=== PATIENT | female | born 1960 | race Caucasian/White ===

== ENCOUNTER 2023-02-23 17:46 | Inpatient (IN) | payer OTHER ==
[~2023-02-23] VITALS: Ht 157.5 cm; Wt 130.4 kg
[~2023-02-23 17:46] MED LIST: ALBU3IS INH; ALBU90OI INH; ASPI325 PO; ATOR80 PO; AZIT250 PO; Acetaminophen650 M1 PO; BUSP5 PO; Bactrim Ds Tab1 EACH PO; CEPH500 PO; CHOL10002 PO; CLIN300 PO; CLOP75 PO; COLE625 PO; Cleocin HCl150 MG PO; DOCU100 PO; DULO30 PO; DULO60 PO; FLUC150A PO; GABA300 PO; GABA600 PO; HYDCHL25 PO; HYDMETSO RIGHTEYE; INSR10I SC; INSULANPEN SC; LEVEMIR FL100 UNIT/1 SC; LEVO750 PO; LISI5 PO; METF500 PO; METO25 PO; MONT10T PO; NAPR500 PO; NYATA15 GM TOP; NYST100P TOP; Novolog Fl100 UNIT/1 SC; Nystatin15 GM TOP; OMEG1CAP30 PO; OMEPRAZOLE MAGN20 MG PO; OXCA300 PO; OXYACE5T PO; PIRO20 PO; PRED10 PO; SERT100 PO; STIOLTO RESPIMAT4 GM INH; TRAM50 PO; Xanax1 MG PO; ZOLP5 PO
[2023-02-23 17:59] LABS: Base Excess Venous 3.5 mmol/L; Bicarbonate Venous 25.1 mmol/L (24.0-30.0); PCO2 Venous 66.4 mmHg (38-42); pH Blood Venous 7.27 (7.34-7.37)
[2023-02-23 18:02] LABS: BASOPHILS ABSOLUTE AUTO 0.05 K/mm3 (0.00-0.23); BASOPHILS PERCENT AUTO 1 % (0-2); EOSINOPHILS ABSOLUTE AUTO 0.11 K/mm3 (0.00-0.68); EOSINOPHILS PERCENT AUTO 1 % (0-6); Hematocrit 44.9 % (33.0-51.0); Hemoglobin 13.7 g/dL (11.5-16.0); IMMATURE GRAN ABSOLUTE AUTO 0.07 K/mm3 (0.00-0.10); IMMATURE GRAN PERCENT AUTO 1 % (0-1); LYMPHOCYTES ABSOLUTE AUTO 1.35 K/mm3 (0.84-5.20); LYMPHOCYTES PERCENT AUTO 17 % (21-46); MONOCYTES ABSOLUTE AUTO 0.74 K/mm3 (0.16-1.47); MONOCYTES PERCENT AUTO 9 % (4-13); Mean Corpuscular HGB 30.4 pg (26.0-34.0); Mean Corpuscular HGB Conc 30.5 g/dL (31.5-36.5); Mean Corpuscular Volume 100 fL (80-100); Mean Platelet Volume 10.8 fL (9.1-12.4); NEUTROPHILS ABSOLUTE AUTO 5.79 K/mm3 (1.96-9.15); NEUTROPHILS PERCENT AUTO 71 % (41-73); Platelet Count 149 K/mm3 (150-400); RDW Coefficient Variation 14.2 % (11.7-14.2); RDW Standard Deviation 51.8 fL (35.1-46.3); White Blood Cell Count 8.11 K/mm3 (4.00-11.30)
[2023-02-23 18:25] LABS: Albumin, Blood 3.5 g/dL (3.4-5.0); Albumin/Globulin Ratio 0.7 (0.8-1.8); Bilirubin, Total 0.6 mg/dL (0.1-1.0); Bun/Creatinine Ratio 34.3 (12.0-20.0); Calcium, Blood 9.1 mg/dL (8.5-10.1); Creatinine, Blood 1.05 mg/dL (0.40-1.00); Globulin, Blood 4.8 g/dL (2.2-4.0); Potassium, Blood 4.8 mmol/L (3.5-5.5); Total Protein, Blood 8.3 g/dL (6.4-8.2)
[2023-02-23 19:22] LABS: Influenza A, PCR NEGATIVE (NEGATIVE); Influenza B, PCR NEGATIVE (NEGATIVE); Resp Syncytial Virus, PCR NEGATIVE (NEGATIVE); SARS-Cov-2 (COVID-19) PCR, MMC NEGATIVE (NEGATIVE)
[2023-02-23 21:54] VITALS: BP 140/67
--- NOTE | 2023-02-23 23:00 | NUR ---
ARRIVAL TO PCU NOTE RECEIVED REPORT FROM DISTILLATION OPERATOR BRIANA LÓPEZ ~2134, PT SHORTLY ARRIVED TO PCU 4. PT TRANSFERRED FROM ER [facility] TO PCU BED VIA SLIDE SHEET. CARDIAC, TELE REPORTED PT IS IN SR 80-90'S. PT DENIES ANY CP OR PRESSURE WITH SBP RANGING 130-140'S. RESPIRATORY, ARRIVED MAINTAINING SPO2 88-92% ON 7L VIA HFNC WITH RR RANGING 24-26. INCREASED WORK OF BREATHING NOTED WITH MINIMAL EXERTION. LS VERY COARSE AND TIGHT T/O. BiPAP SET UP IN THE ROOM WITH 12-6 W/60% FiO2. GI/, REPORTS INTERMITTNET INCONTINENCE WITH ATTENDS USE AT HOME PER PT. ATTENDS SOAKED WITH YELLOW URINE UPON ARRIVAL FROM ER. ABD DISTENDED, BUT DENIES N/V/D OR TENDERNESS AT THIS TIME. PURWICK IN PLACE DRAINING YELLOW URINE TO SUCTION. M/S, PT HAS NOTED TO HAVE RIGHT BKA AND USES SLIDE BOARD TO TRANSFER AT HOME PER THE PT'S DAUGHTER. SEVERAL RASHES NOTED T/O ABD/SEEMA FOLDS WITH DISCOLORATION NOTED AROUND BUTTOCKS. SEE PIC'S IN CHART. LEFT AC IV INFUSING LEVAQUIN PER EMAR. DENIES PAIN AT THIS TIME. PT IS POOR HISTORIAN AND DAUGHTER (PRIMARY CAREGIVER) IS ALSO A POOR HISTORIAN. WILL CONTINUE TO PROCESS MD ORDERS. REBECCA BRAVO UPON ARRIVAL TO PCU
[2023-02-24] MEDS ORDERED: LOSA25 PO (00:16)
[2023-02-24] MEDS ORDERED: ROSU10TA PO (00:17)
[2023-02-24] MEDS ORDERED: Prozac40 MG PO (00:17)
[2023-02-24] MEDS ORDERED: SIME80CH PO (00:17)
[2023-02-24] MEDS ORDERED: Clobetasol Prop50 ML TOP (00:19)
[2023-02-24] MEDS ORDERED: PIOG15 PO (00:19)
[2023-02-24] MEDS ORDERED: TRAZ100 PO (00:19)
[2023-02-24] MEDS ORDERED: ABILIFY MYCITE10 M2 PO (00:19)
[2023-02-24] MEDS ORDERED: ALLERCLEAR10 MG PO (00:20)
[2023-02-24] MEDS ORDERED: INSULANPEN SC (00:22)
[2023-02-24 02:47] VITALS: BP 131/70
[2023-02-24 04:07] LABS: BASOPHILS ABSOLUTE AUTO 0.02 K/mm3 (0.00-0.23); BASOPHILS PERCENT AUTO 0 % (0-2); EOSINOPHILS PERCENT AUTO 0 % (0-6); Hematocrit 41.1 % (33.0-51.0); Hemoglobin 12.8 g/dL (11.5-16.0); IMMATURE GRAN ABSOLUTE AUTO 0.09 K/mm3 (0.00-0.10); IMMATURE GRAN PERCENT AUTO 1 % (0-1); LYMPHOCYTES ABSOLUTE AUTO 0.51 K/mm3 (0.84-5.20); LYMPHOCYTES PERCENT AUTO 6 % (21-46); MONOCYTES ABSOLUTE AUTO 0.12 K/mm3 (0.16-1.47); MONOCYTES PERCENT AUTO 1 % (4-13); Mean Corpuscular HGB Conc 31.1 g/dL (31.5-36.5); Mean Corpuscular Volume 100 fL (80-100); Mean Platelet Volume 11.5 fL (9.1-12.4); NEUTROPHILS ABSOLUTE AUTO 8.17 K/mm3 (1.96-9.15); NEUTROPHILS PERCENT AUTO 92 % (41-73); NRBC ABSOLUTE 0.02 K/mm3 (0.00-0.02); NRBC Auto 0.2 /100 WBC (0.0-0.2); Platelet Count 131 K/mm3 (150-400); RDW Coefficient Variation 13.9 % (11.7-14.2); RDW Standard Deviation 50.9 fL (35.1-46.3); Red Blood Cell Count 4.13 M/mm3 (3.80-5.20); White Blood Cell Count 8.91 K/mm3 (4.00-11.30)
[2023-02-24 04:23] LABS: Bun/Creatinine Ratio 37.3 (12.0-20.0); Creatinine, Blood 0.96 mg/dL (0.40-1.00); Potassium, Blood 5.4 mmol/L (3.5-5.5)
--- NOTE | 2023-02-24 06:22 | NUR ---
SHIFT SUMMARY NO ACUTE CHANGES FROM ARRIVAL TO PCU NOTE. SEE NOTE FOR MORE DETAILS. CONTINUES BE IN SR 80-90 S WITH NO REPORTS OF CP OR PRESSURE. CT/PE STUDY PERFORMED LAST NIGHT. TOLERATED BiPAP THROUGHOUT MOST OF THE NIGHT WITH 12/6 W/60% FiO2. CONTINUES TO BE INCONTINENT OF URINE. ATTENDS WITH PUREWICK IN PLACE AND CHANGED PRN TO KEEP C/D/I. ASSESSED PT FOR RISKS OF ANY IGNITION SOURCES WELL BEHAVIORS FOR INCREASED RISKS OF FIRE DANGER. PT EDUCATED ON COMMON SOURCES OF IGNITION WELL NEED TO KEEP A SAFE ENVIRONMENT. PT VOICED UNDERSTANDING. NO NEW ORDERS AT THIS TIME, WILL REPORT TO ONCOMING RN. LAWRENCE, REBECCA OF THIS NOTE
--- NOTE | 2023-02-24 07:30 | NUR ---
Initial Assessment: Patient is awake sitting up in bed, she is alert and oriented X4. She has a history of Muscular Dystrophy and has generalized weakness T/O, her fingers are stuck straight and she is unable to noc analyst anything. She has a right BKA. She denies pain at this time, she states she has chronic N/T in her hands and feet. HRR, SR in the 70s. LS DIM in the bases, Biox stable on 5L. She does not wear oxygen at home but does have a home C-Pap. She states her mask doesn't fit very well. We talked about her bringing in her home C-Pap for the respiratory staff to look at. BT+, pt states she is chronically constipated and often will go a couple of days before having a bowel movement. Patient is incontinent of bowel and bladder, she wears attends at home. She has a purewick in place and attends in place as well. LPPP, she has a small ulcer to her left pinky toe-she states she had a rough spot on her bed at home and her toe was rubbing on it. VSS. Patient denies needs at this time. Soft touch call light in reach.
[2023-02-24 07:49] VITALS: BP 125/79
[2023-02-24 15:43] VITALS: BP 111/69
[2023-02-24] MEDS ORDERED: SULFAMETHOXAZO1 EACH PO (16:51)
--- NOTE | 2023-02-24 18:35 | NUR ---
Summary: Patient has been alert and oriented x4 T/O the shift, she has a history of Muscular Dystrophy and generalized weakness. She is bed or WC bound at baseline. 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 HRR, she was SR in the 70s before the telemetry was discontinued. Her blood pressures have been stable. LS DIM in the bases, her biox was mid 90s on 5L NC at the start of the shift and I was able to titrate her down to 3L via NC at the end of the shift. She has her IS at bedside and has been very consistently using it. BT+. She has a right BKA and is a lift patient at baseline. She is incontinent of bowel and bladder, she has a purewick in place. She has dry scaly skin, after her bath this shift lotion was applied. She has red irritated areas under her breasts and pannus and in her groin, miconazole powder applied. Her buttocks are purple toward the coccyx, non-blanchable. She was able to ayleen OOB to the chair for the afternoon with the help of the overhead lift. Report was given to Humaira on the medical floor and the patient will be transferred to [facility] via recliner.
--- NOTE | 2023-02-24 19:44 | NUR ---
RECEIVED REPORT FROM DEBBY MELISSA IN PCU. ASSUMED CARE AT 1855. PATIENT WAS TRANSFERRED HERE VIA RECLINER. MOVED PATIENT TO BED VIA LIFT. N/T OF HAND AND LLE. DENIES PAIN, CP/PRESSURE, SOB, OR DIZZINESS AT TIME OF TRANSFER. PATIENT DENIES ANY NEEDS AT THIS TIME. REQUESTED SOFT TOUCH CALL LIGHT DUE TO WEAKNESS FROM MUSCULAR DYSTROPHY.
[2023-02-24 19:45] VITALS: BP 112/73
[2023-02-25 04:26] VITALS: BP 114/73
--- NOTE | 2023-02-25 05:15 | NUR ---
1900: ASSUMED CARE OF PT, REPORT RECEIVED FROM DAY SHIFT RN. PT IS A/O X4, SITTING UP IN BED WITH DAUGHTERS AT THE BEDSIDE. BREATHING IS EVEN AND UNLABORED WITH OXYGEN VIA NC AT 3LPM. SATURATIONS MAINTAINED >90%. RT TO THE ROOM TO SET UP CPAP AND SUPERINTENDENT TRANSPORTATION. VSS AND MEDICATIONS PROVIDED ORDERED, PT TOLERATED WELL WITH WATER. SOFT TOUCH CALL LIGHT PROVIDED R/T HZ OF MS. PT IS ABLE TO DEMONSTRATE USE. 0400 :MINIMAL OUTPUT DURING THE NIGHT TO PUREWICK SYSTEM. UNMEASURED INCONTINENCE TO BRIEF. SEEMA CARE PERFORMED, NEW BRIEF PLACED AND NEW PURE WICK PLACED. PT TOLERATED WELL. ADJUSTED IN BED FOR SKIN INTEGRITY AND BLE ELEVATED. CPAP OFF AT THIS TIME. SAFETY MEASURES TAKEN AND NEEDS ADDRESSED DURING THE NIGHT.
[2023-02-25 08:13] VITALS: BP 117/64
--- NOTE | 2023-02-25 11:22 | NUR ---
PATIENT'S CBG 371. NOTIFIED PROVIDERS. PATIENT IS ASYMPTOMATIC AT THIS TIME. SHE WAS ALSO COMPLIANING OF SOB AND HER 02 SATS WERE 87% ON 3L. INCREASED HER O2 TO 4L AND NOW SHE IS SATTING AT 92%. NOTIFIED CHARGE.
[2023-02-25 15:42] VITALS: BP 114/69
--- NOTE | 2023-02-25 16:12 | NUR ---
SHIFT SUMMARY A&OX4, COOPERATIVE WITH CARE. BEDBOUND, R BKA, WEAKNESS TO BILATERAL HANDS R/T MUSCULAR DYSTROPHY. DENIES CP/PRESSURE, HEADACHE, OR DIZZINESS. O2 SATS IN THE LOW 90'S ON 3L AT FOR MOST OF THE DAY, THEN INCREASED TO 4L WHEN PATIENT STATED SHE FELT SOB. O2 SATS DECREASE TO MID 80'S WHEN LYING FLAT FOR REPOSITIONING. NONBLANCHABLE RED/PURPLE SKIN TO GLUTEAL FOLDS, INNER GROIN, AND PANNUS AREAS. BARRIER CREAM APPLIED. SKIN IS DRY AND FLAKY. PUREWICK IN PLACE. PATIENT VISITING WITH FAMILY AT THIS TIME. SOFT TOUCH CALL LIGHT WITHIN REACH. BED IN LOWEST POSITION.
[2023-02-25 20:31] VITALS: BP 117/67
[2023-02-25] MEDS ORDERED: [UNRECOGNIZED DRUG - OTHER] PO (20:45)
[2023-02-25] MEDS ORDERED: Ventolin/Prove6.7 GM INH (20:46)
[2023-02-25] MEDS ORDERED: LOKELMA10 GM PO (20:49)
[2023-02-25] MEDS ORDERED: SEMGLEE (Y100 UNIT/2 SC (20:53)
[2023-02-25 21:30] LABS: Bun/Creatinine Ratio 47.3 (12.0-20.0); Calcium, Blood 9.1 mg/dL (8.5-10.1); Creatinine, Blood 1.31 mg/dL (0.40-1.00)
[2023-02-25 22:07] LABS: HEMOGLOBIN A1C 6.9 % (4.8-5.6)
[2023-02-26 02:37] VITALS: BP 118/71
[2023-02-26 05:11] LABS: BASOPHILS ABSOLUTE AUTO 0.01 K/mm3 (0.00-0.23); BASOPHILS PERCENT AUTO 0 % (0-2); EOSINOPHILS PERCENT AUTO 0 % (0-6); Hemoglobin 12.7 g/dL (11.5-16.0); IMMATURE GRAN PERCENT AUTO 1 % (0-1); LYMPHOCYTES ABSOLUTE AUTO 0.61 K/mm3 (0.84-5.20); LYMPHOCYTES PERCENT AUTO 5 % (21-46); MONOCYTES PERCENT AUTO 2 % (4-13); Mean Corpuscular HGB 30.4 pg (26.0-34.0); Mean Corpuscular Volume 98 fL (80-100); NEUTROPHILS ABSOLUTE AUTO 11.25 K/mm3 (1.96-9.15); NEUTROPHILS PERCENT AUTO 92 % (41-73); Platelet Count 168 K/mm3 (150-400); RDW Coefficient Variation 13.9 % (11.7-14.2); RDW Standard Deviation 49.7 fL (35.1-46.3); Red Blood Cell Count 4.18 M/mm3 (3.80-5.20); White Blood Cell Count 12.27 K/mm3 (4.00-11.30)
[2023-02-26 05:52] LABS: Bun/Creatinine Ratio 52.9 (12.0-20.0); Calcium, Blood 9.3 mg/dL (8.5-10.1); Creatinine, Blood 1.38 mg/dL (0.40-1.00); Potassium, Blood 5.4 mmol/L (3.5-5.5)
--- NOTE | 2023-02-26 06:57 | NUR ---
SHIFT SUMMARY PT A&OX4. ONE TIME DOSE GIVEN FOR INSULINE GLARGINE AT HS. NO C/O PAIN. VSS. NO ACUTE CHANGES. PT SLEPT T/O MOST OF NIGHT WITH CPAP. O2 BLEED IN INCREASED D/T PT'S SATING IN HIGH 80'S. TURNED Q2. BED IN LOWEST POSITION AND CALL LIGHT IN REACH.
[2023-02-26 07:46] VITALS: BP 111/72
[2023-02-26 16:31] VITALS: BP 130/62
--- NOTE | 2023-02-26 18:01 | NUR ---
SHIFT SUMMARY- PT ALERT AND ORIENTED. PT MAX 2PA FOR BED MOBILITY AND LIFT FOR TRANSFERS, WC BOUND AT BASELINE. PT WAS TRANSFERED TO AN AIR BED THIS AFTERNOON AROUND 1700. PT HAS HAD FAMILY AT THE BEDSIDE T/O THE SHIFT. PT HAS RESPIRATORY DISTRESS WHEN SHE LAYS FLAT. PLACED ON BIPAP FOR TRANSFERS AND ROLL AND CHANGES. PUREWICK IN PLACE BUT THERE IS SOME LEAKAGE. PT SITTING UP IN BED, CALL LIGHT IN REach (soft touch) NO CURRENT S&S OF DISTRESS SHE IS EATING DINNER.
[2023-02-26 19:29] VITALS: BP 143/75
[2023-02-27 03:37] VITALS: BP 133/84
--- NOTE | 2023-02-27 03:51 | NUR ---
SHIFT SUMMARY PT AWAKE DURING SHIFT REPORT, RESTING QUIETLY WATCHING TV. PT ON 3L O2 VIA N/C AT START OF SHIFT. HS MEDS GIVEN AND THEN PT PLACED ON BIPAP W/8L BLEED IN TO LAY PT DOWN TO CHANGE ATTENDS AND PLACE PREVENTATIVE DRSG TO COCCYX. PT UNABLE TO TOLERATE LYING FLAT W/O BIPAP. PT IS MORBIDLY OBESE, ON RA AT BASELINE. IDDM WITH R BKA. ADMITTED FOR RESP FAILURE, RECEIVING IV STEROIDS. PLEASANT AND CO-OP WITH CARE. GENERAL BODYWIDE EDEMA. PT REPORTED NO BM X 4 DAYS; COLACE GIVEN. MIRALAX OFFERED, BUT PT REFUSED AT THIS TIME. RESTING QUIETLY ON BIPAP; NO S/SX OF DISTRESS NOTED. CALL LT IN REACH.
[2023-02-27 05:27] LABS: BASOPHILS ABSOLUTE AUTO 0.01 K/mm3 (0.00-0.23); BASOPHILS PERCENT AUTO 0 % (0-2); EOSINOPHILS PERCENT AUTO 0 % (0-6); Hemoglobin 13.2 g/dL (11.5-16.0); IMMATURE GRAN ABSOLUTE AUTO 0.05 K/mm3 (0.00-0.10); IMMATURE GRAN PERCENT AUTO 1 % (0-1); LYMPHOCYTES PERCENT AUTO 5 % (21-46); MONOCYTES ABSOLUTE AUTO 0.16 K/mm3 (0.16-1.47); MONOCYTES PERCENT AUTO 2 % (4-13); Mean Corpuscular HGB 30.8 pg (26.0-34.0); Mean Corpuscular HGB Conc 31.4 g/dL (31.5-36.5); Mean Corpuscular Volume 98 fL (80-100); NEUTROPHILS ABSOLUTE AUTO 8.78 K/mm3 (1.96-9.15); NEUTROPHILS PERCENT AUTO 92 % (41-73); Platelet Count 142 K/mm3 (150-400); RDW Coefficient Variation 13.9 % (11.7-14.2); RDW Standard Deviation 49.6 fL (35.1-46.3); Red Blood Cell Count 4.29 M/mm3 (3.80-5.20)
[2023-02-27 05:43] LABS: Bun/Creatinine Ratio 56.1 (12.0-20.0); Calcium, Blood 9.2 mg/dL (8.5-10.1); Creatinine, Blood 1.23 mg/dL (0.40-1.00); Potassium, Blood 5.3 mmol/L (3.5-5.5)
[2023-02-27 07:54] VITALS: BP 112/69
[2023-02-27 17:23] VITALS: BP 131/87
--- NOTE | 2023-02-27 19:57 | NUR ---
SHIFT SUMMARY- PT HAS SHOWN GREAT IMPROVEMENT TODAY. YESTERDAY JUST TO ROLL AND CHANGE THE PT SHE WOULD GO INTO RESPIRATORY DISTRESS WITHOUT THE BIPAP IN PLACE. TODAY SHE SEEMS BRIGHTER, AND NOT SHORT OF BREATH. SHE WAS ABLE TO TOLLERATE A FULL BED BATH TODAY THAT TOOK MULTIPLE STAFF MORE THAN AN HOUR, DUE TO THE AMOUNT OF SKIN ON HER HEAD MAKING HAIR WASHING A DIFFICULT AND TEDIOUS TASK. THE PT STATES THIS IS A CHRONIC ISSUE FOR HER. PT WAS ABLE TO TOLLERATE POSSITION CHANGES SEVERAL TIMES TODAY ON 3L NC WITH MINIMAL DISCOMFORT. AFTER THE BATH, THE PT WAS ASSISTED TO THE RECLINER CHAIR VIA THE LIFT, SHE SAT UP UNTIL THE TIME OF BEDSIDE REPORT. PT WAS ASSISTED BACK TO BED VIA THE LIFT BY THE NIGHT RN AND THIS RN. PT IN BED, CALL LIGHT IN REACH (SOFT TOUCH IN PLACE) NO S&S OF DISTRESS NOTED AT THE TIME OF REPORT. PT REMAINS ON 3L VIA NC, WHILE UP IN THE CHAIR O2 SATS WERE NOTED TO BE 97% ON 3L, BUT WITH THE ACTIVITY OF GETTING BACK TO BED SHE WAS AT 92-93%. PASSED ON TO NIGHT RT THAT THE PT WAS SATTING 96% ON THE BIPAP WHEN THIS RN ARRIVED, O2 BLEED IN MAY NEED TO BE REDUCED.
[2023-02-27 23:08] VITALS: BP 135/57
[2023-02-28 04:38] VITALS: BP 129/73
--- NOTE | 2023-02-28 05:24 | NUR ---
SHIFT SUMMERY. PT RESTING IN BED, PT SAT ON BED TUCKER BUT NO RESULTS. PT GIVEN MOM.PT NEEDS TO HAVE ON BIPAP AT 8L WHEN LAYED BACK. PT BECOMES VERY SOB AND O2 SATS DECREASE. CALL LIGHT IN REACH.
[2023-02-28 05:39] LABS: Bun/Creatinine Ratio 65.4 (12.0-20.0); Calcium, Blood 9.6 mg/dL (8.5-10.1); Creatinine, Blood 1.04 mg/dL (0.40-1.00); Potassium, Blood 5.5 mmol/L (3.5-5.5)
[2023-02-28 07:40] VITALS: BP 111/63
--- NOTE | 2023-02-28 16:08 | NUR ---
PT AOX4 AND COOPERATIVE OF CARE. PT IS A LIFT PT AND NEEDS HELP Q2 HRS TO REPORTION. PT HAS BEEN IN [employer] AND HAS HAD FAMILY AT BEDSIDE TO VISIT WITH HER TODAY. PT DID CONPLAIN HER BIPAP WAS MAKING HER NOSE SORE AND RT BROUGHT A GEL PAD INTO ROOM TO WEAR WHEN HER MASK IS APPLIED. PT DOING WELL CALL LIGHT IS WITHIN REACH WILL CONTINUE TO MONITOR.
[2023-02-28 17:26] VITALS: BP 127/75
[2023-02-28 19:11] VITALS: BP 150/76
--- NOTE | 2023-03-01 03:47 | NUR ---
AROMATHERAPIST SUMMARY BP ELEVATED, OTHERWISE VSS. CONT PULSE OX IN USE SATS 90'S. HR 54. HOB ALIGHT ELEVATION, BIPAP WITH O2 BLEED IN IN USE. PUREWICK IN USE, REMAINS A LIFT PT. LIFT USED NEEDED. HAS BEEN RESTING QUIETLY WITH FEW INTERRUPTIONS. LUNG SOUNDS WHEEZY IN LOWER LOBES. ASYMPTOMATIC. CALL LIGHT IN REACH. WILL CONTINUE TO MONITOR
[2023-03-01 05:18] VITALS: BP 124/79
[2023-03-01 07:41] VITALS: BP 111/68
[2023-03-01 08:29] LABS: Bun/Creatinine Ratio 53.6 (12.0-20.0); Creatinine, Blood 1.12 mg/dL (0.40-1.00); Potassium, Blood 5.1 mmol/L (3.5-5.5)
[2023-03-01] MEDS ORDERED: PRED20 PO (15:25)
[2023-03-01] MEDS ORDERED: Pulmicort Fle180 MCG INH (15:26)
[2023-03-01] MEDS ORDERED: STIOLTO RESPIMAT4 G1 INH (15:27)
[2023-03-01] MEDS ORDERED: ASPI81CH PO (15:29)
--- NOTE | 2023-03-01 17:20 | NUR ---
PATIENT DISCHARGED TO HOME VIA [facility]. IV SALINE LOCK REMOVED, SITE BLED THROUGH GAUZE DRESSING, WAS REINFORCED. AT ACTUAL TIME OF DEPARTURE, REINFORCED DRESSING REMOVED AND SITE NO LONGER BLEEDING. NEW GAUZE DRESSING PLACED. DAUGHTER GIVEN D/C INSTRUCTIONS AND MEDICATION LIST; NEW MEDS SENT TO [facility] IS CLOSED TODAY. WAS CLEANED AND ATTENDS CHANGED PRIOR TO DEPARTURE. OXYGEN HAS BEEN DELIVERED TO THE HOME. OFF UNIT VIA AMBULANCE AT 1706. NO PERSONAL BELONGINGS LEFT BEHIND IN ROOM.
== END 2023-03-01 17:06 | disposition home health service (06) | DRG 189 ==
LOC: ER 17:46 → PCU 20:56 → MEDS 20:56 → PCU 21:40 → MEDS 02-24 18:46
PROVIDERS: Emergency Medicine; Family Medicine; Student in an Organized Health Care Education/Training Program; ADMIT Internal Medicine
PROC: 4A033R1 Measurement of Arterial Saturation, Peripheral, Percutaneous Approach (ICD-10-PCS; 2023-02-23)
PROC: 3E02340 Introduction of Influenza Vaccine into Muscle, Percutaneous Approach (ICD-10-PCS; 2023-02-23)
PROC: 5A09457 Assistance with Respiratory Ventilation, 24-96 Consecutive Hours, Continuous Positive Airway Pressure (ICD-10-PCS; principal; 2023-02-26)
DX: J96.01 Acute respiratory failure with hypoxia (principal); J44.1 Chronic obstructive pulmonary disease with (acute) exacerbation; N17.9 Acute kidney failure, unspecified; Z68.43 Body mass index [BMI] 50.0-59.9, adult; J96.02 Acute respiratory failure with hypercapnia; Z66 Do not resuscitate; Z20.822 Contact with and (suspected) exposure to COVID-19; G71.00 Muscular dystrophy, unspecified; M19.90 Unspecified osteoarthritis, unspecified site; F41.9 Anxiety disorder, unspecified; G47.33 Obstructive sleep apnea (adult) (pediatric); E11.40 Type 2 diabetes mellitus with diabetic neuropathy, unspecified; E66.01 Morbid (severe) obesity due to excess calories; Z96.651 Presence of right artificial knee joint; Z23 Encounter for immunization; I25.2 Old myocardial infarction; Z90.49 Acquired absence of other specified parts of digestive tract; Z90.89 Acquired absence of other organs; Z90.710 Acquired absence of both cervix and uterus; Z98.890 Other specified postprocedural states; Z98.891 History of uterine scar from previous surgery; Z87.891 Personal history of nicotine dependence; Z79.4 Long term (current) use of insulin; Z79.82 Long term (current) use of aspirin; Z79.02 Long term (current) use of antithrombotics/antiplatelets; Z79.899 Other long term (current) drug therapy
CPT/HCPCS: 0241U; 36415; 71045; 71260; 80048; 80053; 82803; 82947; 83036; 83880; 84484; 85025; 85379; 93005; 93010; 94640; 94644; 94660; 94664; 94760; 94762; 96374; 97110; 97162; 97165; 97535; 99285-25; A9270; C8929; G0008; J0456; J0696; J1650; J1815; J1956; J2930; J3475; J7050; J7512; Q2036; Q9957; Q9967

== ENCOUNTER → 2023-11-20 | Outpatient (CLI) | payer OTHER ==
[~2023-11-20] MED LIST changes: +ABILIFY MYCITE10 M2 PO; +ALLERCLEAR10 MG PO; +ASPI81CH PO; +Clobetasol Prop50 ML TOP; +LOKELMA10 GM PO; +LOSA25 PO; +PIOG15 PO; +PRED20 PO; +Prozac40 MG PO; +Pulmicort Fle180 MCG INH; +ROSU10TA PO; +SEMGLEE (Y100 UNIT/2 SC; +SIME80CH PO; +STIOLTO RESPIMAT4 G1 INH; +SULFAMETHOXAZO1 EACH PO; +TRAZ100 PO; +Ventolin/Prove6.7 GM INH; +[UNRECOGNIZED DRUG - OTHER] PO
[2023-11-20 13:31] LABS: Source, Urine Voided
[2023-11-20 14:38] LABS: Appearance, Urine Hazy (Clear); Bilirubin, Urine Neg (Neg); Blood, Urine Neg (Neg); Glucose Qualitative, Urine Neg (Neg); Ketones, Urine Neg (Neg); Leukocyte Esterase, Urine Neg (Neg); Nitrite, Urine Neg (Neg); Protein, Urine 1+ (Neg); Specific Gravity, Urine 1.015 (1.003-1.022); Urobilinogen, Urine NORM (Normal)
[2023-11-20 15:12] LABS: Color, Urine Pale Yellow (P-Yellow)
[2023-11-20 15:13] LABS: Bacteria Many /hpf; Red Blood Cells, Urine 0-2 /hpf (0-2); Squamous Epithelial Cells Mod /hpf (Few)
== END | disposition home or self-care (01) ==
LOC: LAB 13:27 → LAB SHORT 13:27
PROVIDERS: Student in an Organized Health Care Education/Training Program
DX: D64.9 Anemia, unspecified (principal); R94.4 Abnormal results of kidney function studies
CPT/HCPCS: 81001; 87077; 87086; 87186

== ENCOUNTER → 2023-12-03 | Outpatient (CLI) | payer OTHER ==
[2023-12-03 16:47] LABS: Bun/Creatinine Ratio 33.3 (12.0-20.0); Creatinine, Blood 1.11 mg/dL (0.40-1.00); Percent Saturation 15.9 % (15.0-50.0); Potassium, Blood 4.3 mmol/L (3.5-5.5)
== END ==
LOC: LAB SHORT 15:19 → LAB 15:19
PROVIDERS: Student in an Organized Health Care Education/Training Program
DX: R94.4 Abnormal results of kidney function studies (principal); D64.9 Anemia, unspecified
CPT/HCPCS: 80048; 82728; 83540; 83550

== ENCOUNTER 2024-03-02 08:12 | Day surgery (SDC) | payer OTHER | END 2024-03-02 23:00 | disposition home or self-care (01) | LOC: WOUND 08:12 | DX: L89.812 Pressure ulcer of head, stage 2 (principal); I25.10 Atherosclerotic heart disease of native coronary artery without angina pectoris; G47.33 Obstructive sleep apnea (adult) (pediatric); E11.9 Type 2 diabetes mellitus without complications; I25.2 Old myocardial infarction; S01.2 Open wound of nose; X58.XXXS Exposure to other specified factors, sequela | CPT/HCPCS: G0463 ==

== ENCOUNTER 2024-03-16 | Day surgery (SDC) | payer OTHER | END 2024-03-16 23:00 | disposition home or self-care (01) | LOC: WOUND | DX: L89.812 Pressure ulcer of head, stage 2 (principal); E11.9 Type 2 diabetes mellitus without complications; I25.10 Atherosclerotic heart disease of native coronary artery without angina pectoris; G47.33 Obstructive sleep apnea (adult) (pediatric); G71.00 Muscular dystrophy, unspecified; Z87.828 Personal history of other (healed) physical injury and trauma | CPT/HCPCS: G0463 ==

== ENCOUNTER → 2024-11-22 | Outpatient (CLI) | payer OTHER ==
[~2024-11-22] MED LIST changes: +Amoxicillin875 MG PO; +POLYTRIM EYE DR10 M1 LEFTEYE
[2024-11-22 17:29] LABS: BASOPHILS ABSOLUTE AUTO 0.04 K/mm3 (0.00-0.23); BASOPHILS PERCENT AUTO 1 % (0-2); EOSINOPHILS ABSOLUTE AUTO 0.12 K/mm3 (0.00-0.68); EOSINOPHILS PERCENT AUTO 2 % (0-6); Hematocrit 33.7 % (33.0-51.0); Hemoglobin 10.9 g/dL (11.5-16.0); IMMATURE GRAN ABSOLUTE AUTO 0.02 K/mm3 (0.00-0.10); IMMATURE GRAN PERCENT AUTO 0 % (0-1); LYMPHOCYTES ABSOLUTE AUTO 1.57 K/mm3 (0.84-5.20); LYMPHOCYTES PERCENT AUTO 22 % (21-46); MONOCYTES ABSOLUTE AUTO 0.50 K/mm3 (0.16-1.47); MONOCYTES PERCENT AUTO 7 % (4-13); Mean Corpuscular HGB Conc 32.3 g/dL (31.5-36.5); Mean Corpuscular Volume 99 fL (80-100); NEUTROPHILS ABSOLUTE AUTO 4.77 K/mm3 (1.96-9.15); NEUTROPHILS PERCENT AUTO 68 % (41-73); NRBC ABSOLUTE 0.00 K/mm3 (0.00-0.02); NRBC Auto 0.0 /100 WBC (0.0-0.2); Platelet Count 165 K/mm3 (150-400); RDW Coefficient Variation 12.1 % (11.7-14.2); RDW Standard Deviation 43.9 fL (35.1-46.3)
[2024-11-22 17:57] LABS: Alanine Aminotransfer (ALT/SGP 25.0 U/L (12-78); Albumin, Blood 3.4 g/dL (3.4-5.0); Albumin/Globulin Ratio 1.0 (0.8-1.8); Anion Gap 4.0 mmol/L (3-11); Aspartate Aminotrans (AST/SGOT 23.0 U/L (12-37); Bilirubin, Total 0.3 mg/dL (0.1-1.0); Blood Urea Nitrogen 26.0 mg/dL (8-24); CO2, Blood 38.0 mmol/L (21-32); Calcium, Blood 9.8 mg/dL (8.5-10.1); Chloride, Blood 100.0 mmol/L (98-108); Creatinine, Blood 1.01 mg/dL (0.40-1.00); Ferritin, Serum 62.0 ng/mL (8-252); Globulin, Blood 3.4 g/dL (2.2-4.0); Glucose, Blood 153.0 mg/dL (70-99); Potassium, Blood 3.7 mmol/L (3.5-5.5); Sodium, Blood 138.0 mmol/L (136-145); Thyroid Stimulating Hormone 1.54 uIU/mL (0.360-4.800); Total Iron Binding Capacity 285.0 ug/dL (250-450); Total Protein, Blood 6.8 g/dL (6.4-8.2)
== END ==
LOC: LAB SHORT 17:00 → LAB 17:00
PROVIDERS: Student in an Organized Health Care Education/Training Program
DX: E11.22 Type 2 diabetes mellitus with diabetic chronic kidney disease (principal); I12.9 Hypertensive chronic kidney disease with stage 1 through stage 4 chronic kidney disease, or unspecified chronic kidney disease; N18.30 Chronic kidney disease, stage 3 unspecified; D63.1 Anemia in chronic kidney disease; N39.46 Mixed incontinence; R53.83 Other fatigue
CPT/HCPCS: 80053; 82728; 83036; 83540; 83550; 84443; 85025

== ENCOUNTER → 2025-01-24 | Outpatient (CLI) | payer OTHER ==
[2025-01-24 17:07] LABS: BASOPHILS ABSOLUTE AUTO 0.05 K/mm3 (0.00-0.23); BASOPHILS PERCENT AUTO 1 % (0-2); EOSINOPHILS ABSOLUTE AUTO 0.17 K/mm3 (0.00-0.68); EOSINOPHILS PERCENT AUTO 2 % (0-6); Hematocrit 36.4 % (33.0-51.0); Hemoglobin 11.2 g/dL (11.5-16.0); IMMATURE GRAN ABSOLUTE AUTO 0.01 K/mm3 (0.00-0.10); IMMATURE GRAN PERCENT AUTO 0 % (0-1); LYMPHOCYTES ABSOLUTE AUTO 1.52 K/mm3 (0.84-5.20); LYMPHOCYTES PERCENT AUTO 20 % (21-46); MONOCYTES ABSOLUTE AUTO 0.47 K/mm3 (0.16-1.47); MONOCYTES PERCENT AUTO 6 % (4-13); Mean Corpuscular HGB Conc 30.8 g/dL (31.5-36.5); Mean Corpuscular Volume 101 fL (80-100); NEUTROPHILS ABSOLUTE AUTO 5.44 K/mm3 (1.96-9.15); NEUTROPHILS PERCENT AUTO 71 % (41-73); NRBC ABSOLUTE 0.00 K/mm3 (0.00-0.02); NRBC Auto 0.0 /100 WBC (0.0-0.2); Platelet Count 174 K/mm3 (150-400); RDW Coefficient Variation 11.8 % (11.7-14.2); RDW Standard Deviation 43.1 fL (35.1-46.3)
[2025-01-24 17:13] LABS: Alanine Aminotransfer (ALT/SGP 26 U/L (12-78); Albumin, Blood 3.4 g/dL (3.4-5.0); Albumin/Globulin Ratio 0.9 (0.8-1.8); Anion Gap 2 mmol/L (3-11); Aspartate Aminotrans (AST/SGOT 22 U/L (12-37); Bilirubin, Total 0.4 mg/dL (0.1-1.0); Blood Urea Nitrogen 24 mg/dL (8-24); CHOL/HDL RATIO 2.3; CO2, Blood 38 mmol/L (21-32); Calcium, Blood 9.8 mg/dL (8.5-10.1); Chloride, Blood 101 mmol/L (98-108); Cholesterol 121 mg/dL (50-200); Creatinine, Blood 0.84 mg/dL (0.40-1.00); Globulin, Blood 3.7 g/dL (2.2-4.0); Glucose, Blood 101 mg/dL (70-99); HDL Cholesterol 53 mg/dL (>39); LDL/HDL RATIO 0.6; Low Density Lipoprotein Chol 34 mg/dL (0-110); Potassium, Blood 4.4 mmol/L (3.5-5.5); Sodium, Blood 137 mmol/L (136-145); Total Protein, Blood 7.1 g/dL (6.4-8.2); Triglycerides 169 mg/dL (30-160); Very Low Density Lipoprot Chol 33 mg/dL (6-32)
== END ==
LOC: LAB 13:50 → LAB SHORT 13:50
PROVIDERS: Nurse Practitioner Family
DX: Z13.6 Encounter for screening for cardiovascular disorders (principal); I10 Essential (primary) hypertension
CPT/HCPCS: 80053; 80061; 85025